=== PATIENT | female | born 1965 | race Caucasian/White ===

== ENCOUNTER 2017-07-20 17:13 | Observation (INO) ==
--- NOTE | 2017-07-20 17:18 | Emergency Department Note ---
Disposition Clinical Impression: Neurological abnormality Disposition: Home, Self-Care Condition: Fair Referrals: Zi Lucas MD [Primary Care Provider] - Forms: ED Satisfaction Letter Time of Disposition: 20:41 General Adult HPI - General Chief complaint: ED Neuro Symptoms/Deficit Stated complaint: Stroke like Symp Time Seen by Provider: 07/20/17 17:15 Source: patient Mode of arrival: wheelchair Limitations: altered mental status Nursing Notes Reviewed: Yes Vital Signs Reviewed: Yes - History of Present Illness HPI Narrative: 51-year-old female presents to the emergency department for convulsions and slurred speech. Daughter was with her and states that she got a call at approximately 1615 from her grandmother saying that she was not acting normal was having this arm shaking as well as slurred speech and confusion. This time is within the daughter went to get her and brought her to the emergency department on their way to the [facility] department she started having generalized convulsions and there does not to the hospital. He said this is all new to her. She only has history of SVT and hypertension in those the only medications that she takes. She has not had any changes in her medications. She haS no seizure history. Patient they said they believed to be last known normal at 1430 as this is when their other daughter jumped off their 7-month- old son to be watched. Recurrent daughter that is here states that she would not Dr. off she fell she was acting abnormal. That is what they believe is the last known normal. Patient's having no nausea or vomiting. No other complaints including headache, blurry vision, neck pain, abdominal pain, chest pain, shortness of breath, change in urination, change in bowel movements, pain or tingling on the arms or legs or any other generalized weakness. - Related Data Home Medications Medication Instructions Recorded Confirmed Albuterol Sulfate [Proair Hfa] 2 puff IH Q6H PRN 07/20/17 07/20/17 Cholecalciferol (D-3) [Vitamin D] 1,000 unit PO DAILY 07/20/17 07/20/17 Dicyclomine [Bentyl] 20 mg PO QID 07/20/17 07/20/17 Diltiazem CD (24hr) [Cardizem CD] 120 mg PO DAILY 07/20/17 07/20/17 FLUoxetine HCl [Prozac] 40 mg PO DAILY 07/20/17 07/20/17 Fluticasone/Salmeterol [Advair 1 puff IH BID 07/20/17 07/20/17 250-50 Diskus] Montelukast [Singulair] 10 mg PO DAILY 07/20/17 07/20/17 Valsartan/Hydrochlorothiazide 1 tab PO DAILY 07/20/17 07/20/17 [Diovan Hct 320-25 mg Tablet] Allergies Allergy/AdvReac Type Severity Reaction Status Date / Time No Known Allergies Allergy Verified 10/19/16 19:08 Review of Systems: 10 point review of systems done and negative unless otherwise stated in history of present illness. All systems ED: reviewed and negative except as stated. Review of Systems: As Per HPI Past Medical History - Past Medical History Attestation: Yes The following information was validated with the patient. Source: patient Medical history: Reports: asthma, hypertension, other - Social History Smoking Status: Never smoker Smokeless Tobacco Status: No Alcohol use: Reports: occasionally Drug use: Reports: none Physical Exam - General Limitations: no limitations General appearance: alert, in no apparent distress - Head Head exam: atraumatic, normocephalic, normal inspection - Eye Eye exam: Present: normal appearance, PERRL, EOMI - ENT ENT exam: normal exam, normal oropharynx, mucous membranes moist - Neck Neck exam: Present: normal inspection, full ROM, trachea midline - Chest Chest inspection: Present: normal inspection, symmetric chest wall rise - Respiratory Respiratory exam: Present: normal lung sounds bilaterally - Cardiovascular Cardiovascular exam: Present: regular rate, normal rhythm, normal heart sounds - Abdominal Exam Abdominal exam: Present: soft, Non-Tender, normal bowel sounds. Absent: tenderness, distention, guarding, rebound, rigidity - Extremities Exam Extremities exam: Present: normal inspection, full ROM, other (Rosenthal does have generalized shaking or convulsions while laying in bed in all 4 limbs.). Absent : tenderness, pedal edema - Back Exam Back exam: Present: normal inspection, full ROM. Absent: tenderness, CVA tenderness (R), CVA tenderness (L) - Neurological Exam Neurological exam: Present: alert, oriented X3, CN II-XII intact, motor sensory deficit - Expanded Neurological Exam Patient oriented to: Present: person, place, time Speech: Present: expressive aphasia Cranial nerves: EOM function (II, III, IV, ): Normal, facial sensation (V): Normal, facial palsy (VII): Normal, spinal accessory function (XI): Normal Cerebellar function: finger to nose: Normal, heel to [place]: Normal Motor strength - LUE: 5/5 Motor strength - RUE: 5/5 Motor strength - LLE: 5/5 Motor strength - RLE: 5/5 Upper motor neuron exam: marimar neglect: Absent bilaterally, pronator drift: Absent bilaterally Sensory exam upper extremity: light touch: Normal Sensory exam lower extremity: light touch: Normal Coma Scale Eye Opening: Spontaneous Coma Scale Motor Response: Obeys Commands Coma Scale Verbal Response: Oriented Coma Scale Total: 15 - Skin Skin exam: Present: warm, dry, intact, normal color Course Course Narrative: 51-year-old female presenting to the emergency department altered mental status as well as convulsions. After evaluating her there was worry for stroke suicide to initiate a stroke alert. CT head and neck were done immediately. We also got basic labs including coags, BMP, CBC, urinalysis, salicylates, acetaminophen, ethanol, UDS and urinalysis. Also got an EKG. [facility] is set to see the patient once returning from CT scan. - Reevaluation(s) Reevaluation #1: After coming back from CT scan patient was able to answer questions and move all limbs but she still did have generalized shaking that has gotten better than when she first arrived. She is able to follow all commands. [facility] did talk to her and was worried about a left lower limb ataxia as well as his generalized shaking. Due to the not know normal being unknown she was not a candidate for tPA according to [facility] and he recommended we do CTA of head and neck as well as giving 2 mg of Ativan for the shaking. These were ordered at this time. Negative head CT was called to Dr. Jean Baptiste during this time. This is explained to the patient's family and they understand this decision. Time: 18:06 Vital Signs Temperature 99.0 F 07/20/17 17:29 Pulse Rate 86 07/20/17 17:29 Respiratory Rate 18 07/20/17 17:29 Blood Pressure 158/103 07/20/17 17:29 O2 Sat by Pulse Oximetry 100 07/20/17 17:29 Temperature 99.0 F 07/20/17 18:11 Pulse Rate 87 12/13/17 20:24 Respiratory Rate 19 07/20/17 20:24 Blood Pressure 112/66 07/20/17 20:24 O2 Sat by Pulse Oximetry 95 07/20/17 20:24 Oxygen Delivery Oxygen Delivery Room Air Medical Decision Making - MDM Narrative Medical decision making narrative: 51-year-old female presented to the emergency department with slurred speech, shaking as well as aphasia. When we first evaluated her there was worry about strokes we called a stroke alert immediately. Patient was immediately taken down to CT and a CT was done and it did come back that was negative with no signs of hemorrhagic stroke. There is no other signs or abnormalities on that. [facility] did see the patient the neurologist to their exam and did see the limb ataxia as well as the shaking. Patient really was no longer a phasic but there was mild aphasia as she had a hard time expressing her words so it is more of an expressive aphasia. Patient did have a NIH of 1. The neurologist recommended not to have TPA as there was no known normal time for her. They say 1430 was when the sister talked to her and dropped her 7-month- old child off to be babysat as the last time they know normal. We did give her 2 mg of Ativan which did help with the convulsions and patient did fall asleep and was no longer having the convulsions. He gets CTA of her head and neck which had no acute abnormalities. Due to the odd neurological symptoms we felt admission was warranted. I spoke with the hospitalist Dr. Candelaria agreed to admit the patient to their service. Patient is now admitted to their service for further evaluation. Patient family are okay with this plan. Patient is in stable condition. Head CT 07/20/17 17:15 IMPRESSION: No acute intracranial abnormality. Findings were discussed with Dr. Jean Baptiste At 5:39 pm on 07/20/2017. D/ / Santana Simpson MD / Santana Simpson MD Interpreting Provider: Santana Simpson MD Head CTA 07/20/17 17:55 IMPRESSION: Mild stenosis of the intracranial internal carotid arteries, without flow-limiting stenosis involving intracranial vasculature. No focal occlusion or high-grade stenosis. Minimal atherosclerotic disease at the bilateral carotid bifurcation. No evidence of high-grade stenosis or occlusion. No evidence of vascular dissection. Focally dilated tubular structure appears similar to previous examination. 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 Recommend noncontrast examination of the chest nonemergently. This was present on 10/19/[address] D/ /20/2017 20:03:00 Bigg Lyon MD / kandis Interpreting Provider: Bigg Lyon MD Neck CTA 07/20/17 17:55 IMPRESSION: Mild stenosis of the intracranial internal carotid arteries, without flow-limiting stenosis involving intracranial vasculature. No focal occlusion or high-grade stenosis. Minimal atherosclerotic disease at the bilateral carotid bifurcation. No evidence of high-grade stenosis or occlusion. No evidence of vascular dissection. Focally dilated tubular structure appears similar to previous examination. 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 Recommend noncontrast examination of the chest nonemergently. This was present on 10/19/[address] D/ /20/2017 20:03:00 Bigg Lyon MD / kandis Interpreting Provider: Bigg Lyon MD - Medical Records Medical records reviewed: Yes I reviewed the patient's medical records. - Lab Data Lab results reviewed: Yes I reviewed the patient's lab results. Result diagrams: 07/20/17 17:18 07/20/17 17:18 Lab Results 07/20/17 07/20/17 07/20/17 Range/Units 17:18 17:18 17:18 WBC 8.1 (4.3-11.1) K/mcL RBC 3.74 L (3.82-4.97) M/mcL Hgb 12.2 (11.5-15.4) g/dL Hct 36.0 (35.3-44.9) % MCV 96.3 (83.0-100.0) fL MCH 32.6 (28.0-33.3) pg MCHC 33.9 (31.6-35.5) g/dL RDW 12.4 (11.5-14.5) % Plt Count 334 (140-400) K/mcL MPV 9.2 L (9.4-12.4) fL Immature Gran % 0.2 (0-4) % Seg Neutrophils % 44.0 % Lymphocytes % 44.6 % Monocytes % 8.1 % Eosinophils % 2.7 % Basophils % 0.4 % Neutrophils # 3.6 (1.6-8.9) K/mcL Lymphocytes # 3.6 (0.6-4.6) K/mcL Monocytes # 0.7 (0.0-1.3) K/mcL Eosinophils # 0.2 (0.0-0.6) K/mcL Basophils # 0.0 (0.0-0.2) K/mcL PT 10.9 (9.4-12.1) Seconds INR 1.0 APTT 28.1 (26.0-36.0) Seconds Sodium 141 (136-145) mEq/L Potassium 3.8 (3.5-4.5) mEq/L Chloride 106 (98-109) mEq/L Carbon Dioxide 25 (19-29) mEq/L BUN 17 (7-20) mg/dL Creatinine 0.93 (0.57-1.11) mg/dL Est GFR ( Amer) > 60 (> 60) Est GFR (Non-Af Amer) > 60 (> 60) BUN/Creatinine Ratio 18 (6-26) Glucose 124 H (70-99) mg/dL Calculated Osmolality 295 (280-300) Calcium 9.6 (8.6-10.8) mg/dL Creatine Kinase 73 (29-168) Units/L Troponin I (0-0.03) ng/mL Urine Color (Yellow) Urine Clarity (Clear) Urine pH (5.0-8.0) pH Units Ur Specific [place] (1.010-1.025) Urine Protein (Neg-Trace) mg/dL Urine Glucose (UA) (Normal) mg/dL Urine Ketones (Negative) mg/dL Urine Blood (Negative) Urine Nitrite (Negative) Urine Bilirubin (Negative) Urine Urobilinogen (Normal) mg/dL Ur Leukocyte Esterase (Negative) Urine Microscopic RBC (0-3) per hpf Urine Microscopic WBC (0-3) per hpf Ur Squamous Epith Cells (None-Few) per lpf Urine Bacteria (None-Few) per hpf Hyaline Casts (None-Few) per lpf Ur Culture Indicated? (NO) Urine Test (Negative) Salicylates < 5.0 L (15-30) mg/dL Urine Opiates Screen (Atwvcs=382) ng/mL Acetaminophen < 1.0 L (10-30) mcg/mL Ur Barbiturates Screen (Pgszxo=976) ng/mL Ur Phencyclidine Scrn (Cutoff=25) ng/mL Ur Amphetamines Screen (Kjhiqb=1271) ng/mL U Benzodiazepines Scrn (Jrnhkc=593) ng/mL Urine Cocaine Screen (Cutoff= 300) ng/mL U Marijuana (THC) Screen (Cutoff = 50) ng/mL Ethyl Alcohol < 10 (0-10) mg/dL 07/20/17 07/20/17 07/20/17 Range/Units 17:18 18:22 18:22 WBC (4.3-11.1) K/mcL RBC (3.82-4.97) M/mcL Hgb (11.5-15.4) g/dL Hct (35.3-44.9) % MCV (83.0-100.0) fL MCH (28.0-33.3) pg MCHC (31.6-35.5) g/dL RDW (11.5-14.5) % Plt Count (140-400) K/mcL MPV (9.4-12.4) fL Immature Gran % (0-4) % Seg Neutrophils % % Lymphocytes % % Monocytes % % Eosinophils % % Basophils % % Neutrophils # (1.6-8.9) K/mcL Lymphocytes # (0.6-4.6) K/mcL Monocytes # (0.0-1.3) K/mcL Eosinophils # (0.0-0.6) K/mcL Basophils # (0.0-0.2) K/mcL PT (9.4-12.1) Seconds INR APTT (26.0-36.0) Seconds Sodium (136-145) mEq/L Potassium (3.5-4.5) mEq/L Chloride (98-109) mEq/L Carbon Dioxide (19-29) mEq/L BUN (7-20) mg/dL Creatinine (0.57-1.11) mg/dL Est GFR ( Amer) (> 60) Est GFR (Non-Af Amer) (> 60) BUN/Creatinine Ratio (6-26) Glucose (70-99) mg/dL Calculated Osmolality (280-300) Calcium (8.6-10.8) mg/dL Creatine Kinase (29-168) Units/L Troponin I 0.02 (0-0.03) ng/mL Urine Color Yellow (Yellow) Urine Clarity Clear (Clear) Urine pH 7.0 (5.0-8.0) pH Units Ur Specific [place] 1.019 (1.010-1.025) Urine Protein Negative (Neg-Trace) mg/dL Urine Glucose (UA) Normal (Normal) mg/dL Urine Ketones Negative (Negative) mg/dL Urine Blood Negative (Negative) Urine Nitrite Negative (Negative) Urine Bilirubin Negative (Negative) Urine Urobilinogen Normal (Normal) mg/dL Ur Leukocyte Esterase Trace H (Negative) Urine Microscopic RBC 0-3 (0-3) per hpf Urine Microscopic WBC 0-3 (0-3) per hpf Ur Squamous Epith Cells Moderate H (None-Few) per lpf Urine Bacteria None Seen (None-Few) per hpf Hyaline Casts None Seen (None-Few) per lpf Ur Culture Indicated? YES A (NO) Urine Test Negative (Negative) Salicylates (15-30) mg/dL Urine Opiates Screen (Zeosdc=028) ng/mL Acetaminophen (10-30) mcg/mL Ur Barbiturates Screen (Cpveba=115) ng/mL Ur Phencyclidine Scrn (Cutoff=25) ng/mL Ur Amphetamines Screen (Lvjgbp=2531) ng/mL U Benzodiazepines Scrn (Adhbqq=663) ng/mL Urine Cocaine Screen (Cutoff= 300) ng/mL U Marijuana (THC) Screen (Cutoff = 50) ng/mL Ethyl Alcohol (0-10) mg/dL 12/13/17 Range/Units 18:22 WBC (4.3-11.1) K/mcL RBC (3.82-4.97) M/mcL Hgb (11.5-15.4) g/dL Hct (35.3-44.9) % MCV (83.0-100.0) fL MCH (28.0-33.3) pg MCHC (31.6-35.5) g/dL RDW (11.5-14.5) % Plt Count (140-400) K/mcL MPV (9.4-12.4) fL Immature Gran % (0-4) % Seg Neutrophils % % Lymphocytes % % Monocytes % % Eosinophils % % Basophils % % Neutrophils # (1.6-8.9) K/mcL Lymphocytes # (0.6-4.6) K/mcL Monocytes # (0.0-1.3) K/mcL Eosinophils # (0.0-0.6) K/mcL Basophils # (0.0-0.2) K/mcL PT (9.4-12.1) Seconds INR APTT (26.0-36.0) Seconds Sodium (136-145) mEq/L Potassium (3.5-4.5) mEq/L Chloride (98-109) mEq/L Carbon Dioxide (19-29) mEq/L BUN (7-20) mg/dL Creatinine (0.57-1.11) mg/dL Est GFR ( Amer) (> 60) Est GFR (Non-Af Amer) (> 60) BUN/Creatinine Ratio (6-26) Glucose (70-99) mg/dL Calculated Osmolality (280-300) Calcium (8.6-10.8) mg/dL Creatine Kinase (29-168) Units/L Troponin I (0-0.03) ng/mL Urine Color (Yellow) Urine Clarity (Clear) Urine pH (5.0-8.0) pH Units Ur Specific [place] (1.010-1.025) Urine Protein (Neg-Trace) mg/dL Urine Glucose (UA) (Normal) mg/dL Urine Ketones (Negative) mg/dL Urine Blood (Negative) Urine Nitrite (Negative) Urine Bilirubin (Negative) Urine Urobilinogen (Normal) mg/dL Ur Leukocyte Esterase (Negative) Urine Microscopic RBC (0-3) per hpf Urine Microscopic WBC (0-3) per hpf Ur Squamous Epith Cells (None-Few) per lpf Urine Bacteria (None-Few) per hpf Hyaline Casts (None-Few) per lpf Ur Culture Indicated? (NO) Urine Test (Negative) Salicylates (15-30) mg/dL Urine Opiates Screen Negative (Zwcjyr=511) ng/mL Acetaminophen (10-30) mcg/mL Ur Barbiturates Screen Negative (Bzocfk=765) ng/mL Ur Phencyclidine Scrn Negative (Cutoff=25) ng/mL Ur Amphetamines Screen Negative (Htrrbn=8479) ng/mL U Benzodiazepines Scrn Negative (Jfoqpl=908) ng/mL Urine Cocaine Screen Negative (Cutoff= 300) ng/mL U Marijuana (THC) Screen Positive H (Cutoff = 50) ng/mL Ethyl Alcohol (0-10) mg/dL - Radiology Data Radiology results reviewed: Yes I reviewed the patient's radiology results. - EKG Data EKG #1 EKG attestation: Yes I reviewed and interpreted this EKG. EKG results narrative: EKG done at 1738 reviewed myself and the attending shows normal sinus rhythm at a rate of 84, HI interval 162, QRS 77, QTC 419 with a normal axis. No acute ST changes, no acute T-wave abnormalities, no signs of hypertrophy or heart strain , no signs of any heart blocks, no signs of WPW/Brugada syndrome. There is no old EKG to compare this time. Attestation Statement - Attestation Attestation: I examined this patient and my medical decision-making was reviewed with the Resident Physician. I agree with the documented findings, disposition and treatment plan as described except to the extent set forth below. Fxyq-sw-[id number] time provided Patient presents to the treatment area by wheelchair. She was brought to the hospital by her daughter by private vehicle. She had generalized convulsive movements upon arrival she was alert and a phasic. She seems very anxious. We initially could not ascertain whether or not this was primarily a facial and a primary cerebrovascular event so we did activate a stroke alert 17:39: Head CT negative per closed radiology interpretation. Patient has returned from CT scan and moves all 4 extremities with symmetric strength. She is intermittently aphasic. 17:56: Dr. Vidales is completed his telemedicine neurology evaluation. He recommends against TPA due to uncertain onset of symptoms. He recommends IV Ativan and obtaining a CTA head and neck NIH Stroke Scale - Level of Consciousness LOC: Alert - LOC Questions LOC Questions: Answers both correctly - LOC Commands LOC Commands: Performs both correctly - Best Gaze Best Gaze: Normal - Visual Visual: No visual loss - Facial Palsy Facial Palsy: Normal - Motor Arms Motor Arm-Left: No drift for 10 seconds Motor Arm-Right: No drift for 10 seconds - Motor Legs Motor Leg-Left: No drift for 5 seconds Motor Leg-Right: No drift for 5 seconds - Limb Ataxia Limb Ataxia: Normal, No Ataxia - Sensory Sensory: Normal - Best Language Best Language: Mild to moderate aphasia. Examiner can identify picture from response - Dysarthria Dysarthria: Normal - Extinction and Inattention Extinction and Inattention: Normal - NIHSS Total Score NIHSS Total Score: 1
[2017-07-20 17:28] LABS: Basophils % 0.4 %; Eosinophils # 0.2 K/mcL (0.0-0.6); Eosinophils % 2.7 %; Hemoglobin 12.2 g/dL (11.5-15.4); Immature Granulocytes % 0.2 % (0-4); Lymphocytes # 3.6 K/mcL (0.6-4.6); Lymphocytes % 44.6 %; Mean Corpuscular HGB Conc 33.9 g/dL (31.6-35.5); Mean Corpuscular Hemoglobin 32.6 pg (28.0-33.3); Mean Corpuscular Volume 96.3 fL (83.0-100.0); Mean Platelet Volume 9.2 fL (9.4-12.4); Monocytes # 0.7 K/mcL (0.0-1.3); Monocytes % 8.1 %; Neutrophils # 3.6 K/mcL (1.6-8.9); Platelet Count 334 K/mcL (140-400); Red Blood Count 3.74 M/mcL (3.82-4.97); Red Cell Distribution Width 12.4 % (11.5-14.5)
[2017-07-20 17:35] LABS: Prothrombin Time 10.9 Seconds (9.4-12.1)
[2017-07-20 17:38] LABS: Activated Partial Thrombo Time 28.1 Seconds (26.0-36.0)
[2017-07-20 17:42] LABS: Acetaminophen < 1.0 mcg/mL (10-30); BUN/Creatinine Ratio 18 (6-26); Blood Urea Nitrogen 17 mg/dL (7-20); Calcium 9.6 mg/dL (8.6-10.8); Carbon Dioxide 25 mEq/L (19-29); Chloride 106 mEq/L (98-109); Creatine Kinase 73 Units/L (29-168); Ethanol < 10 mg/dL (0-10); Glucose 124 mg/dL (70-99); Osmolality,Calculated 295 (280-300); Potassium 3.8 mEq/L (3.5-4.5); Salicylate < 5.0 mg/dL (15-30); Sodium 141 mEq/L (136-145); eGFR For African Americans > 60 (> 60); eGFR For Non-African Americans > 60 (> 60)
[2017-07-20] MEDS ORDERED: *HR* LORazepam 2 MG/ML VIAL IVP ONE (17:55)
[2017-07-20 18:29] LABS: Bilirubin,Urine Negative (Negative); Blood,Urine Negative (Negative); Clarity,Urine Clear (Clear); Color,Urine Yellow (Yellow); Glucose,Urine (UA) Normal (Normal); Ketones,Urine Negative (Negative); Leukocyte Esterase,Urine Trace (Negative); Nitrite,Urine Negative (Negative); Protein,Urine Negative (Neg-Trace); Specific Gravity,Urine 1.019 (1.010-1.025); Urobilinogen,Urine Normal (Normal)
[2017-07-20 18:30] LABS: Bacteria,Urine None Seen per hpf (None-Few); Hyaline Casts,Urine None Seen per lpf (None-Few); RBC,Urine 0-3 per hpf (0-3); Squamous Epithelial Cell,Urine Moderate per lpf (None-Few); WBC,Urine 0-3 per hpf (0-3)
[2017-07-20 18:35] LABS: Amphetamine Screen,Urine Negative ng/mL (Cutoff=1000); Barbiturate Screen,Urine Negative ng/mL (Cutoff=200); Benzodiazepines Screen,Urine Negative ng/mL (Cutoff=200); Cannabinoid Screen,Urine Positive ng/mL (Cutoff = 50); Cocaine Screen,Urine Negative ng/mL (Cutoff= 300); Opiate Screen,Urine Negative ng/mL (Cutoff=300); Phencyclidine Screen,Urine Negative ng/mL (Cutoff=25)
--- NOTE | 2017-07-20 21:25 | Internal Med History&Physical ---
<Natalee Ramey - Last Filed: 07/20/17 23:12> Date of Encounter: 07/20/17 Time of Encounter: 21:22 Assessment and Plan (1) Dizziness Current visit: Yes Status: Acute Patient reported dizziness that she described as the "room moving around" that began at 3pm. Worse when standing up from seated position. She also had numbness and tingling in right arm. Patient's family reported she was not acting right. ED called stroke alert and the patient was not TPA candidate. Upon my exam the patient was alert and oriented. No focal deficits. Strength and sensation intact. She only complained of continued dizziness and nausea. She recently had a sinus cold that she just got over. CTA head and neck showed mild stenosis of the intracranial internal carotid arteries that was not obstructing blood flow. Consider Vertigo secondary to BPPV, acute labrynthitis, posterior occipital CVA Brain MRI meclizine orthostatics PT/OT to evaluate lipid panel fall precautions (2) Hypertension Current visit: Yes Status: Acute BP stable. History of SVT continue home medications of cardizem and valsartan/ HCTZ Qualifiers: Hypertension type: essential hypertension Qualified Code(s): I10 - Essential (primary) hypertension (3) Asthma Current visit: Yes Status: Acute History of asthma taking advair and proair stable and controlled continue home medications Qualifiers: Qualified Code(s): J45.909 - Unspecified asthma, uncomplicated (4) Multiple allergies Current visit: Yes Status: Acute history of allergies. continue home medications. (5) DVT prophylaxis Current visit: Yes Status: Acute ambulate TID Internal Medicine - H&P: HPI Chief complaint: dizziness Admitted From: Emergency Dept Plans for Post Hospital Care: Home History of present illness: Ms. Barrera is a 51 year old female with a past medical history of HTN, asthma, depression, SVT who presented to [facility] ED complaining of dizziness that began around 3pm. The patient is alongside her daughter who helps to confirm history. She stated that she was sitting when the room starting "moving around". She also had right arm numbness and tingling. Standing up made it worse. Her daughter was called by the grandma who was with the patient and told her that she was not acting right and very dizzy. Daughter then picked up her mother and came to ED. Daughter stated the patient began stiffening up in wheel chair as she was bringing her in and that she had tremor like movement. The patient stated that she had associated nausea. She denies syncope, headache, chest pain, palpitations, shortness of breathe, abdominal pain, dysuria, incontinence. She reported that she has had sinus congestion she just got over. She denied recent travel, sick contacts, falls, seizure, stroke. Upon my exam the patient no longer had right arm numbness or tingling or weakness. She only had dizziness. She had just been given ativan so she was more tired but still able to answer questions. Her daughter was present to help. The patient had been to the ED about a month ago apparently she passed out on treadmill. She stated at that time she had the same dizziness with the room "moving around" prior to falling. In the ED a stroke alert was called, the patient did not require TPA. UDS positive for marijuana. afebrile, vitals stable, WBC WNL. CTA head and neck showed mild stenosis of the intracranial internal carotid arteries that was not obstructing blood flow. Past Med Surg Social Fam HX - Past Medical History Medical history: asthma, hypertension, SVT, other Psychiatric history: depression - Past Surgical History Surgical History: breast surgery (breast reduction) - Social History Smoking Status: Never smoker Smokeless Tobacco Status: No Alcohol use: occasionally Drug use: none Current living situation: Home Activity Level: Independent ambulation - Family History Mother Hx Family Cancer: Yes (breast cancer) Father Hx Family Cancer: Yes (lung and liver cancer) Internal Medicine - H&P: Meds Albuterol Sulfate [Proair Hfa] 2 puff IH Q6H PRN 07/20/17 [History] Cholecalciferol (D-3) [Vitamin D] 1,000 unit PO DAILY 07/20/17 [History] Dicyclomine [Bentyl] 20 mg PO QID 07/20/17 [History] Diltiazem CD (24hr) [Cardizem CD] 120 mg PO DAILY 07/20/17 [History] FLUoxetine HCl [Prozac] 40 mg PO DAILY 07/20/17 [History] Fluticasone/Salmeterol [Advair 250-50 Diskus] 1 puff IH BID 07/20/17 [History] Montelukast [Singulair] 10 mg PO DAILY 07/20/17 [History] Valsartan/Hydrochlorothiazide [Diovan Hct 320-25 mg Tablet] 1 tab PO DAILY 07/20 [History] 3 Allergy/AdvReac Type Severity Reaction Status Date / Time No Known Allergies Allergy Verified 10/19/16 19:08 All Systems PM: A 10-system review of systems was performed and is negative for pertinent findings except as documented above in the HPI. - Constitutional Constitutional: no chills, no fever(s), no falls - EENT Eyes: change in vision ("room moving around"), no floaters, no loss of vision, no tunnel vision Ears: no decreased hearing Nose, mouth and throat: no facial pain, no sinus pressure, no sore throat - Cardiovascular Cardiovascular ROS IM: lightheadedness, no chest pain, no diaphoresis, no palpitations, no syncope - Respiratory Respiratory: no cough, no dyspnea, no wheezing - Gastrointestinal Gastrointestinal: nausea, no abdominal pain, no cramping, no hematemesis, no melena, no vomiting - Genitourinary Genitourinary: no dysuria, no hematuria, no urinary frequency, no urinary incontinence, no urinary urgency - Musculoskeletal Musculoskeletal ROS IM: no muscle weakness - Integumentary Integumentary IM: no rash - Neurological Neurological ROS: abnormal speech, dizziness, numbness (right amr), tingling ( right arm), tremor(s), vertigo, weakness, no abnormal hearing, no convulsions, no headache(s), no loss of vision - Constitutional Vitals: Temp Pulse Resp BP Pulse Ox 99.0 F 87 19 112/66 95 07/20/17 18:11 07/20/17 20:24 07/20/17 20:24 07/20/17 20:24 07/20/17 20:24 General appearance: Present: A&O X 3, pleasant, no acute distress - Head Head exam: Present: atraumatic, normocephalic - Eye Eye exam: Present: conjunctival injection, normal appearance. Absent: nystagmus , scleral icterus - ENT ENT exam: Present: mucous membranes moist - Neck Neck exam general surgery: Present: normal inspection, supple. Absent: lymphadenopathy, tenderness - Respiratory Respiratory exam: Present: CTAB. Absent: rales, rhonchi, wheezes - Cardiovascular Cardiovascular exam: Present: RRR, +S1, +S2. Absent: clicks - GI/Abdominal GI/Abdominal exam: Present: normal bowel sounds, soft. Absent: firm, guarding, rebound, tenderness - Extremities Exam Extremities exam: Present: normal inspection. Absent: calf tenderness - Back Exam Back exam: Present: normal inspection. Absent: rash noted, tenderness - Neurological Exam Neurological exam: Present: motor sensory deficit, oriented X3, strengths equal and symetr throughout. Absent: facial droop, speech deficit - Skin Skin exam: Present: dry, intact Internal Med - H&P Results - Labs CBC & Chem 7: 07/20/17 17:18 07/20/17 17:18 <Casey Candelaira - Last Filed: 07/21/17 01:19> Date of Encounter: 07/21/17 Internal Medicine - H&P: HPI History of present illness: Ms. Barrera is a 51 year old female All Systems PM: A 10-system review of systems was performed and is negative for pertinent findings except as documented above in the HPI. - Constitutional Vitals: Temp Pulse Resp BP Pulse Ox 98.0 F 77 16 107/68 93 07/20/17 21:57 07/20/17 21:57 07/20/17 21:57 07/20/17 21:57 07/20/17 21:57 Internal Med - H&P Results - Labs CBC & Chem 7: 07/20/17 17:18 07/20/17 17:18 - Attending Attestation I examined this patient and my medical decision-making was reviewed with the Resident Physician. I agree with the documented findings, disposition and treatment plan as described except to the extent set forth below. Presented with vertigo symptoms - reported everything spinning. Noted to have tremors of extremities in the ED and some LLE feature ? leading to stroke alert that was called in the ED. Eval with CT head w/o acute finding. CTA as rec by [facility] neurology For me, she has significant vertiginous symptoms General - Somnolent Psych - Appropriate affect/speech. No agitation Eyes - No scleral icterus Neuro - No focal peripheral deficits - UE and LE 4/5. CN exam grossly intact but with decreased ability to open eyelids long enough for exam occular movement Heart - Sinus. RRR. S1 and S2 present. No added HS/murmurs appreciated. No elevated JVD appreciated. Lung - Adequate air entry b/l, No crackles/wheezes appreciated GI - Soft, non-tender. No hepatosplenomegaly/ascites. BS+ - No CVA/suprapubic tenderness or palpable bladder distension Skin - Intact. No rash/petechiae/ecchymosis. Warm extremities MSK - Joints with normal ROM. No joint swellings CT/CT stroke alert head wo con IMPRESSION: No acute intracranial abnormality. CT/CT angio head IMPRESSION: 1. Mild stenosis of intracranial internal carotid arteries, without flow-limiting stenosis involving intracranial vasculature. No focal occlusion or high-grade stenosis. 2. Minimal atherosclerotic disease at the bilateral carotid bifurcation. No evidence of high-grade stenosis or occlusion. No evidence of vascular dissection. 3. Focally dilated tubular structure within right upper lobe appears similar to previous examination. 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 Recommend noncontrast examination of the chest nonemergently. This was present on 10/19/[address] (but only post-contrast images were obtained at that time). CT/CT angio neck IMPRESSION: 1. Mild stenosis of intracranial internal carotid arteries, without flow-limiting stenosis involving intracranial vasculature. No focal occlusion or high-grade stenosis. 2. Minimal atherosclerotic disease at the bilateral carotid bifurcation. No evidence of high-grade stenosis or occlusion. No evidence of vascular dissection. 3. Focally dilated tubular structure within right upper lobe appears similar to previous examination. 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 Recommend noncontrast examination of the chest nonemergently. This was present on 10/19/[address] (but only post-contrast images were obtained at that time). A/P Prominent vertigo symptoms Mental status may be poor as she had benzo in the ED. To follow in the a.m - check MRI brain w/o contrast to r/o posterior CVA - CT Chest w/o contrast to clarify incidental MRA findings as recommended by report - PT/OT
[2017-07-20] MEDS ORDERED: Naloxone 0.4 MG/ML INJ IVP PRN (21:27)
[2017-07-20] MEDS ORDERED: Ondansetron ODT 4 MG TAB.RAPDIS SL PRN (21:48)
[2017-07-21 04:15] LABS: Alanine Aminotransferase 11 Units/L (0-55); Albumin 3.1 g/dL (3.5-5.0); Albumin/Globulin Ratio 0.8 (1.1-2.2); Alkaline Phosphatase 65 Units/L (38-126); Aspartate Amino Transferase 14 Units/L (5-34); BUN/Creatinine Ratio 15 (6-26); Bilirubin,Total 0.4 mg/dL (0.2-1.2); Blood Urea Nitrogen 11 mg/dL (7-20); Calcium 9.1 mg/dL (8.6-10.8); Carbon Dioxide 27 mEq/L (19-29); Chloride 104 mEq/L (98-109); Globulin 3.8 g/dL (2.4-3.5); Glucose 97 mg/dL (70-99); Lactate Dehydrogenase 139 Units/L (159-327); Osmolality,Calculated 285 (280-300); Potassium 3.5 mEq/L (3.5-4.5); Sodium 138 mEq/L (136-145); Total Protein 6.9 g/dL (6.0-8.3); eGFR For African Americans > 60 (> 60); eGFR For Non-African Americans > 60 (> 60)
[2017-07-21] MEDS: Budesonide/Formoterol 80/4.5 MDI IH SCH ×2 (07:50→19:56)
[2017-07-21] MEDS: FLUoxetine 20 MG CAPSULE PO SCH (08:43)
[2017-07-21] MEDS: Diltiazem CD (24hr) 120 MG CAPSULE PO SCH (08:43)
[2017-07-21] MEDS: hydroCHLOROthiazide 25 MG TABLET PO SCH (08:43)
[2017-07-21] MEDS: Valsartan 160 MG TABLET PO SCH (08:43)
[2017-07-21] MEDS: Levofloxacin 750 MG/150 ML 750 MG/150 ML BAG IVPB SCH ×2 (11:46→11:52)
--- NOTE | 2017-07-21 13:00 | Neurology - Consult Note ---
Date of Encounter: 07/21/17 Time of Encounter: 07:50 Assessment and Plan (1) Dizziness Current Visit: Yes Status: Acute This 57-year-old female was admitted with Dizziness lightheadedness predominantly positional vertigo now symptoms has resolved she did not have any focal motor lateralizing sign of a stroke on her examination nor did she was having some nonspecific numbness and tingling that has been resolved. CT angiogram did not show any critical stenosis in the posterior circulation no evidence of posterior circulation stroke on exam or imaging. She is scheduled for an MRI of the brain followed with the results. Suggest to check for underlying metabolic and infectious etiology Continue on an aspirin may use meclizine on when necessary basis Symptoms also not concerning off seizure no new medication recommended from neurology standpoint other treatment is as per primary team may benefit from physical therapy evaluation particularly for gait and balance training. (2) Weakness generalized Current Visit: Yes Status: Acute weakness no focal motor deficit on examination Her metabolic abnormalities make sure patient is well hydrated she did have a urine tox positive symptoms could be related to ut History of Present Illness HPI: Ms. Barrera is a 51 year old female with a past medical history of HTN, asthma, depression, admitted via ED complaining of dizziness that began around 3pm. according to the patient she was sitting when the room starting "moving around" . She also had right arm numbness and tingling when she tried to stand up symptoms got worse. because of these symptoms she came to the ED. according to the records when her Daughter was bringing her to ER patient began stiffening up in wheel chair she may had some tremor like movement. she also has some associated nausea. She denies syncope, chest pain, palpitations, shortness of breathe, abdominal pain, dysuria, incontinence. she was also complaining of right arm numbness or tingling and weakness that resolved in ER< she was given ativan The patient had been to the ED about a month ago apparently she passed out on treadmill. She stated at that time she had the same dizziness with the room "moving around" prior to falling. In the ED a stroke alert was called, as her symptoms were not typical of CVA and noted to be improved with Ativan, she was not a TPA candidate. drug screen is positive for marijuana. in ED CT of head was negative, CTA head and neck did not show any critical stenosis Past Med Surg Social Fam HX - Past Medical History Medical history: asthma, hypertension, SVT, other Psychiatric history: depression - Past Surgical History Surgical History: breast surgery (breast reduction) - Social History Smoking Status: Never smoker Smokeless Tobacco Status: No Alcohol use: occasionally Drug use: none - Family History Mother Hx Family Cancer: Yes (breast cancer) Father Living Status: Hx Family Cancer: Yes (lung and liver cancer) Medications and Allergies Albuterol Sulfate [Proair Hfa] 2 puff IH Q6H PRN 07/20/17 [History] Cholecalciferol (D-3) [Vitamin D] 1,000 unit PO DAILY 07/20/17 [History] Dicyclomine [Bentyl] 20 mg PO QID 07/20/17 [History] Diltiazem CD (24hr) [Cardizem CD] 120 mg PO DAILY 07/20/17 [History] FLUoxetine HCl [Prozac] 40 mg PO DAILY 07/20/17 [History] Fluticasone/Salmeterol [Advair 250-50 Diskus] 1 puff IH BID 07/20/17 [History] Montelukast [Singulair] 10 mg PO DAILY 07/20/17 [History] Valsartan/Hydrochlorothiazide [Diovan Hct 320-25 mg Tablet] 1 tab PO DAILY 07/20 [History] 3 Allergy/AdvReac Type Severity Reaction Status Date / Time No Known Allergies Allergy Verified 10/19/16 19:08 All Systems: A 10-system review of systems was performed and is negative for pertinent findings except as documented above in the HPI. Physical Examination - Vital Signs Vital Signs: Initial Vital Signs Temp Pulse Resp BP Pulse Ox 99.0 F 86 18 158/103 100 07/20/17 17:29 07/20/17 17:29 07/20/17 17:29 07/20/17 17:29 07/20/17 17:29 - Constitutional General appearance: comfortable - Neurologic Sensorimotor examination: intact Detailed motor examination: grossly full strength in all extremities Motor examination - right side: 4/5: deltoids, biceps, triceps, wrist flexion, wrist extension, hand silvering supervisor, hip flexors, tibialis Anterior, quadriceps, toe extension (EHL), plantarflexion Motor examination - left side: 4/5: deltoids, biceps, triceps, wrist flexion, wrist extension, hip flexors, hand silvering supervisor, quadriceps, tibialis Anterior, toe extension (EHL), plantarflexion Detailed sensory examination: intact Reflexes: Biceps: 1+, Triceps: 1+, Brachioradialis: 1+, Patella: 1+, Achilles: 1 + Mental Status Examination: awake, alert, oriented to person, oriented to place, oriented to time, follows commands appropriately, answers questions appropriately, no agnosia, no aphasia, no aproxia Cranial nerve examination: PERRL, EOMI, visual pal intact, corneal reflexes brisk symmetrically, sensory to face intact, mastication intact, no facial asymmetry is present, no dysarthria, hearing is intact symmetrically, soft palate elevates bilaterally upon phonation, gag reflex intact, flexes SCM and trapezius muscles symmetrically with full power, tongue protrudes midline, no atrophy or facial fasiculations present Cerebellar examination: no dysmetria Results - Laboratory Findings CBC and BMP: 07/20/17 17:18 07/21/17 03:47 Abnormal lab findings: Abnormal lab results RBC 3.74 M/mcL (3.82-4.97) L 07/20/17 17:18 MPV 9.2 fL (9.4-12.4) L 07/20/17 17:18 POC Glucose 102 (58-89) H 07/20/17 17:16 Lactate Dehydrogenase 139 Units/L (159-327) L 07/21/17 03:47 Albumin 3.1 g/dL (3.5-5.0) L 07/21/17 03:47 Globulin 3.8 g/dL (2.4-3.5) H 07/21/17 03:47 Albumin/Globulin Ratio 0.8 (1.1-2.2) L 07/21/17 03:47 Cholesterol 221 mg/dL (< 200) H 07/21/17 03:47 LDL Cholesterol, Calc 161 mg/dL (0-99) H 07/21/17 03:47 Cholesterol/HDL Ratio 5.0 (0-4.9) H 07/21/17 03:47 Ur Leukocyte Esterase Trace (Negative) H 07/20/17 18:22 Ur Squamous Epith Cells Moderate per lpf (None-Few) H 07/20/17 18:22 Ur Culture Indicated? YES (NO) A 07/20/17 18:22 Salicylates < 5.0 mg/dL (15-30) L 07/20/17 17:18 Acetaminophen < 1.0 mcg/mL (10-30) L 07/20/17 17:18 U Marijuana (THC) Screen Positive ng/mL (Cutoff = 50) H 07/20/17 18:22 - Diagnostic Findings Additional findings: CTA of head and NEck showed: Mild stenosis of intracranial internal carotid arteries, without flow-limiting stenosis involving intracranial vasculature. No focal occlusion or high-grade stenosis. Minimal atherosclerotic disease at the bilateral carotid bifurcation. No evidence of high-grade stenosis or occlusion. No evidence of vascular dissection. Focally dilated tubular structure within right upper lobe appears similar to previous examination. 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 Recommend noncontrast examination of the chest nonemergently. Consult Discharge Plan - Plan Referrals: Zi Lucas MD [Primary Care Provider] -
[2017-07-21 13:40] LABS: Adenovirus Not Detected (Not Detect); Bordetella Pertussis Not Detected (Not Detect); Chlamydophila pneumoniae Not Detected (Not Detect); Coronavirus 229E Not Detected (Not Detect); Coronavirus HKU1 Not Detected (Not Detect); Coronavirus NL63 Not Detected (Not Detect); Coronavirus OC43 Not Detected (Not Detect); Human Metapneumovirus Not Detected (Not Detect); Human Rhinovirus/Enterovirus Not Detected (Not Detect); Influenza A Subtype 2009 H1 Not Detected (Not Detect); Influenza A Untypeable Not Detected (Not Detect); Influenza B Not Detected (Not Detect); Mycoplasma pneumoniae Not Detected (Not Detect); Parainfluenza Virus 1 Not Detected (Not Detect); Parainfluenza Virus 2 Not Detected (Not Detect); Parainfluenza Virus 3 Not Detected (Not Detect); Parainfluenza Virus 4 Not Detected (Not Detect); Respiratory Syncytial Virus Not Detected (Not Detect)
--- NOTE | 2017-07-21 14:21 | EEG/EMG/Oth Biometrics Report ---
EEG Procedure Report Date of procedure: 07/21/17 EEG Procedure: Routine EEG Procedure Note: Routine 21-channel digital EEG was obtained to rule out any seizure activity or focal abnormalities. FINDINGS: Background rhythm during awake stage shows poorly organized, low voltage fast beta activity in the anterior regions. No [id number] discharges or any lateralizing abnormalities are seen. Almost constant EMG artifacts and tremor artifacts are noted making the study suboptimal. Photic stimulation did not produce any abnormalities. Stage II sleep was not observed. The patient was noted by the pipe organ technician to be restless and moving all the time during the study and having tremors of the mouth and arms. Stage II sleep was not achieved. IMPRESSION: Suboptimal study, no clear paroxysmal activities or epileptiform discharges were seen. Prominent beta activity in the anterior regions could be secondary to medication effect, in particularly to Benzos or Barbiturates clinical correlation is suggested
[2017-07-21 14:59] LABS: Folate 16.3 ng/mL (7.0-31.4)
--- NOTE | 2017-07-21 16:30 | Electrocardiograph Report ---
[place] [id number] Test Date: 2017-07-20 Pat Name: Deann Barrera Department: 103 Room: 3B32 Gender: F Instructor Adjunct Surgical Technician: EKP : [id number] Requested By: Bianka Franco Order Number: [id number] Reading MD: Joselyn Roman Measurements Intervals [place] Rate: 84 P: 43 AR: 162 QRS: 29 QRSD: 77 T: 29 QT: 377 QTc: 419 Interpretive Statements SINUS RHYTHM SEPTAL MYOCARDIAL INFARCTION [40+ ms Q WAVE IN V1/V2], PROBABLY OLD Electronically Signed On 07-21-2017 16:28:48 EST by Joselyn Roman
--- NOTE | 2017-07-21 17:22 | Event Note ---
Date of Encounter: 07/21/17 Time of Encounter: 09:30 Seen and examined at bedside. Patient is new to me. Information obtained from chart review and patient report. Patient is awake, drowsy but oriented. Appears acutely ill. Vertigo: Episode of dizziness and sensation of room spinning that started at 3 PM day prior to presentation. ED notes report patient had convulsions and slurred speech as well. Etiology unknown at this time. She is awake and drowsy but does appear somewhat altered. She received IV Ativan and ED which could be contributing to his illness. Head CT and brain MRI nonacute. EEG with no obvious paroxysmal or epileptiform activity. Check echo, orthostatics. If symptoms persist consult ENT. Acute bronchitis: Suspected with productive cough and fever. Patient reports subjective of 104 3 days prior to admission. Says she has been sick for the last 2 weeks but has not sought medical attention. Clinically appears somewhat acute and uncomfortable. Hemodynamically stable. No tachycardia, no hypotension. With productive cough and rhonchorous lung sounds. CXR negative, chest CT stable 9 x 4 mm partially calcified nodule. Clinically appears to be acute bronchitis/URI. Start IV Levaquin. Respiratory PCR, urinary antigens pending.
[2017-07-22 06:13] LABS: Hematocrit 35.1 % (35.3-44.9); Hemoglobin 11.7 g/dL (11.5-15.4); Mean Corpuscular HGB Conc 33.3 g/dL (31.6-35.5); Mean Corpuscular Hemoglobin 32.4 pg (28.0-33.3); Mean Corpuscular Volume 97.2 fL (83.0-100.0); Mean Platelet Volume 9.5 fL (9.4-12.4); Platelet Count 298 K/mcL (140-400); Red Blood Count 3.61 M/mcL (3.82-4.97); Red Cell Distribution Width 12.4 % (11.5-14.5)
[2017-07-22 06:24] LABS: BUN/Creatinine Ratio 19 (6-26); Blood Urea Nitrogen 15 mg/dL (7-20); Carbon Dioxide 26 mEq/L (19-29); Chloride 106 mEq/L (98-109); Glucose 97 mg/dL (70-99); Osmolality,Calculated 291 (280-300); Potassium 4.1 mEq/L (3.5-4.5); Sodium 140 mEq/L (136-145); eGFR For African Americans > 60 (> 60); eGFR For Non-African Americans > 60 (> 60)
[2017-07-22 06:43] VITALS: BP 112/64
[2017-07-22] MEDS: Budesonide/Formoterol 80/4.5 MDI IH SCH (07:50)
--- NOTE | 2017-07-22 09:06 | Discharge Summary ---
Date of Encounter: 07/22/17 Time of Encounter: 09:01 - Discharge Diagnosis (1) Encephalopathy acute Priority: Primary Status: Resolved Comments: Presented with confusion, slurred speech and possible convulsions although unable to confirm convulsions with patient. Head CT nonacute. Head/neck CTA unremarkable. Brain MRI chronic ischemic changes, otherwise nonacute. EEG negative for seizure activity. Mentation improved to baseline without intervention. Suspect secondary to ingestion of marijuana brownie. Patient reported eating a brownie that contained marijuana at her daughter's house unknowingly. Evaluated by neurology who did not suspect underlying neurological process. Cont ASA per neurology recommendations. If the concern for seizures recurs then can follow up with neurology outpatient for 48 hours ambulatory EEG. (2) Acute bacterial bronchitis Priority: Primary Status: Acute Comments: Expected with 2 weeks of productive cough, subjective fevers at home (Tmax 104 per patient) and rhonchorous lung sounds. Chest CT nonacute other clinically appeared to be acute bacterial bronchitis. Urinary antigens, respiratory PCR negative. Received time dose IV Levaquin inpatient. Z-Juan Pablo at discharge. Recommend follow-up with PCP within 1-2 weeks. (3) Hypertension Priority: Primary Status: Acute Comments: per hx. BP soft/borderline. Home Diovan decreased. Follow-up with PCP within one week for BP recheck Qualifiers: Hypertension type: essential hypertension Qualified Code(s): I10 - Essential (primary) hypertension (4) SVT (supraventricular tachycardia) Priority: Primary Status: Chronic Comments: per hx. NSR on tele. Cont home CCB (5) Lung nodule Priority: Primary Status: Chronic Comments: Stable 9 x 4 mm partially calcified nodule in the right upper lobe which could represent a granuloma. If this has been stable for more than 2 years, then no further follow-up is needed. Otherwise CT at 6-12 months, then CT at 18-24 months. Defer follow-up to PCP. - Discharge Medications Prescriptions: Aspirin 81 mg PO DAILY #30 tab.chew Azithromycin [Azithromycin 6-Tab Pack] 250 mg PO PER PKG DI #6 tab Valsartan/Hydrochlorothiazide [Diovan Hct 160-12.5 mg Tab] 1 each PO DAILY #30 tablet Home Medications: Albuterol Sulfate [Proair Hfa] 2 puff IH Q6H PRN 07/20/17 [History] Cholecalciferol (D-3) [Vitamin D] 1,000 unit PO DAILY 07/20/17 [History] Dicyclomine [Bentyl] 20 mg PO QID 07/20/17 [History] Diltiazem CD (24hr) [Cardizem CD] 120 mg PO DAILY 07/20/17 [History] FLUoxetine HCl [Prozac] 40 mg PO DAILY 07/20/17 [History] Fluticasone/Salmeterol [Advair 250-50 Diskus] 1 puff IH BID 07/20/17 [History] Montelukast [Singulair] 10 mg PO DAILY 07/20/17 [History] Aspirin 81 mg PO DAILY #30 tab.chew 07/22/17 [Rx] Azithromycin [Azithromycin 6-Tab Pack] 250 mg PO PER PKG DI #6 tab 07/22/17 [Rx] Valsartan/Hydrochlorothiazide [Diovan Hct 160-12.5 mg Tab] 1 each PO DAILY #30 tablet 07/22/17 [Rx] Allergies/Adverse Reactions: 3 Allergy/AdvReac Type Severity Reaction Status Date / Time No Known Allergies Allergy Verified 10/19/16 19:08 Procedures/tests Complete & Pending: Procedures Performed prior 72 hours Category Date Time Status CT chest w/o contrast [CT chest wo con] [CT] Routine Cat Scan 07/21/17 09:30 Completed MR head/brain wo con [MR] Routine MRI 07/21/17 13:10 Completed ECG 12 lead ECG [ECG] Routine Y 07/20/17 17:38 Completed Date of admission: 07/20/17 20:54 Primary care physician: Zi Lucas MD Consults: 07/20/17 21:44 Consult to Occupational Therapy [CONS] Routine Comment: Evaluate, develop and implement POC Reason for Consult: weakness and dizziness Consult to Physical Therapy [CONS] Routine Comment: Evaluate, develop and implement POC Reason for Consult: weakness and dizziness 07/21/17 01:21 Consult to Neurology [CONS] Routine Consulting Provider: [facility] Reason for Consult: dizziness"room spinning" with associated right arm numbness and tingling, nausea. Call Completed: Yes 07/21/17 09:58 Consult to Interpret Exam [CONS] Routine Consulting Provider: Terrie Langford I Consult to Interpret Exam: Interpret EEG Discharging clinician: Bianka Franco Anticipated date of discharge: 07/22/17 - Patient Status Disposition: Home, Self-Care Condition: Good Functional capacity at discharge: independent ambulation Overall status at discharge: patient is back to baseline - Discharge Instructions Instructions: Azithromycin (By mouth), Acute Bronchitis (DC), Pulmonary Nodules (DC) Follow Up With: Zi Lucas MD [Primary Care Provider] - Additional Instructions: Chest CT showed a stable 9 x 4 mm partially calcified nodule in the right upper lobe which could represent a granuloma. If this has been stable for more than 2 years, then no further follow-up is needed. If this is larger in size is recommended that you have a repeat CT at 6-[address] at 18-24 months. Please follow-up with your PCP for continued surveillance. - Diet and Activity Activity: increase activity as tolerated Diet: advance to your usual diet Interval History: Seen and examined at bedside. Patient says she feels much better and back to baseline. She was discharged home today. She tells me she thinks confusion came from eating a brownie that contained marijuana unknowingly on her daughter' s house. Still has cough, productive at times. No fever or chills. No CP or SOB Hospital course: See assessment and plan for hospital course - Time Spent with Patient Total time spent providing and/or coordinating discharge services: - Constitutional Vitals: Temp Pulse Resp BP Pulse Ox 98.5 F 64 20 112/64 96 07/22/17 06:41 07/22/17 06:41 07/22/17 06:41 07/22/17 06:41 07/22/17 06:41 General appearance: Present: A&O X 3, pleasant, no acute distress - Head Head exam: Present: atraumatic, normocephalic - Eye Eye exam: Present: PERRL, conjuntiva pink, sclera anicteric Pupils: Present: PERRL - Neck Neck exam general surgery: Present: supple, trachea midline. Absent: lymphadenopathy - Respiratory Respiratory exam: Present: rhonchi. Absent: accessory muscle use, rales, wheezes - Cardiovascular Cardiovascular exam: Present: RRR, +S1, +S2. Absent: diastolic murmur, gallop, rubs, systolic murmur - GI/Abdominal GI/Abdominal exam: Present: normal bowel sounds, soft, no peritoneal signs. Absent: distended, tenderness - Extremities Exam Extremities exam: Present: warm, radial pulses palpable and symmetrical. Absent : calf tenderness, cyanotic, pedal edema - Neurological Exam Neurological exam: Present: CN II-XII intact, oriented X3, no focal deficits. Absent: pronater drift, facial droop, speech deficit - Skin Skin exam: Present: dry, intact
--- NOTE | 2017-07-22 09:11 | Neurology Progress Note ---
Date of Encounter: 07/22/17 Time of Encounter: 07:30 Assessment and Plan (1) Dizziness Current Visit: Yes Status: Acute This 57-year-old female was admitted with Dizziness lightheadedness predominantly positional vertigo now symptoms has resolved she did not have any focal motor lateralizing sign of a stroke on her examination nor did she was having some nonspecific numbness and tingling that has been resolved. CT angiogram did not show any critical stenosis in the posterior circulation no evidence of posterior circulation stroke on exam or imaging. Continue on an aspirin may use meclizine on when necessary basis MRI of the brain is negative for any acute abnormality minimal chronic ischemic changes noted EEG was also negative for any seizure type of activity though there was a concern that she may have some stiffening of the body but does not sound like a typical seizure She does have underlying anxiety so she is on medication may need adjustment of anxiety medication she does acknowledges that she has been under a lot of stress perhaps contributing to her symptoms If the concern of SEIZURES remains high and perhaps before may be seen as an outpatient for 48 hours ambulatory EEG (2) Weakness generalized Current Visit: Yes Status: Acute Subjective Interval history: Patient is stable denies any other new symptoms or any other new problems so far workup has been negative and particularly EEG and MRI of the brain both were negative no other new episode Objective - Constitutional Vitals: Temp Pulse Resp BP Pulse Ox 98.5 F 64 20 112/64 96 07/22/17 06:41 07/22/17 06:41 07/22/17 06:41 07/22/17 06:41 07/22/17 06:41 - Neurological Exam Sensorimotor examination: Present: intact Motor Examination: Present: grossly full strength in all extremities Motor examination - left side: 4/5: deltoids, biceps, triceps, wrist flexion, wrist extension, hip flexors, unified communications engineer, quadriceps, tibialis Anterior, toe extension (EHL), plantarflexion Sensation intact: Present: intact Mental Status Examination: Present: awake, alert, oriented to person, oriented to place, oriented to time, follows commands appropriately, answers questions appropriately, no agnosia, no aphasia, no aproxia Cranial nerve examination: Present: PERRL, EOMI, visual pal intact, corneal reflexes brisk symmetrically, sensory to face intact, mastication intact, no facial asymmetry is present, no dysarthria, hearing is intact symmetrically, soft palate elevates bilaterally upon phonation, gag reflex intact, flexes SCM and trapezius muscles symmetrically with full power, tongue protrudes midline, no atrophy or facial fasiculations present Cerebellar examination: Present: no dysmetria Results - Laboratory Findings CBC and BMP: 07/22/17 05:34 07/22/17 05:34 Abnormal lab findings: Abnormal lab results RBC 3.61 M/mcL (3.82-4.97) L 07/22/17 05:34 Hct 35.1 % (35.3-44.9) L 07/22/17 05:34 POC Glucose 102 (58-89) H 07/20/17 17:16 Lactate Dehydrogenase 139 Units/L (159-327) L 07/21/17 03:47 Albumin 3.1 g/dL (3.5-5.0) L 07/21/17 03:47 Globulin 3.8 g/dL (2.4-3.5) H 07/21/17 03:47 Albumin/Globulin Ratio 0.8 (1.1-2.2) L 07/21/17 03:47 Cholesterol 221 mg/dL (< 200) H 07/21/17 03:47 LDL Cholesterol, Calc 161 mg/dL (0-99) H 07/21/17 03:47 Cholesterol/HDL Ratio 5.0 (0-4.9) H 07/21/17 03:47 Ur Leukocyte Esterase Trace (Negative) H 07/20/17 18:22 Ur Squamous Epith Cells Moderate per lpf (None-Few) H 07/20/17 18:22 Ur Culture Indicated? YES (NO) A 07/20/17 18:22 Salicylates < 5.0 mg/dL (15-30) L 07/20/17 17:18 Acetaminophen < 1.0 mcg/mL (10-30) L 07/20/17 17:18 U Marijuana (THC) Screen Positive ng/mL (Cutoff = 50) H 07/20/17 18:22 Consult Discharge Plan - Plan Referrals: Zi Lucas MD [Primary Care Provider] - Prescriptions: Azithromycin [Azithromycin 6-Tab Pack] 250 mg PO PER PKG DI #6 tab Valsartan/Hydrochlorothiazide [Diovan Hct 160-12.5 mg Tab] 1 each PO DAILY #30 tablet
[2017-07-22] MEDS: Valsartan 160 MG TABLET PO SCH (09:29)
[2017-07-22] MEDS: Diltiazem CD (24hr) 120 MG CAPSULE PO SCH (09:29)
[2017-07-22] MEDS: hydroCHLOROthiazide 25 MG TABLET PO SCH (09:29)
[2017-07-22] MEDS: FLUoxetine 20 MG CAPSULE PO SCH (09:29)
== END 2017-07-22 10:11 | disposition home or self-care (01) ==
LOC: 3BNU 17:13 → EMEROO 17:13 → 3BNU 20:56
PROVIDERS: ADMIT Internal Medicine Hematology & Oncology; ATTEND Registered Nurse

== ENCOUNTER 2020-05-09 11:02 | Observation (INO) ==
[2020-05-09] MEDS ORDERED: Aspirin 325 MG TABLET PO ONE (11:30)
[2020-05-09 11:42] LABS: Basophils % 0.4 %; Eosinophils # 0.1 K/mcL (0.0-0.6); Eosinophils % 1.3 %; Hematocrit 39.1 % (35.3-44.9); Hemoglobin 12.7 g/dL (11.5-15.4); Immature Granulocytes % 0.2 % (0-4); Lymphocytes # 2.1 K/mcL (0.6-4.6); Lymphocytes % 25.4 %; Mean Corpuscular HGB Conc 32.5 g/dL (31.6-35.5); Mean Corpuscular Hemoglobin 32.3 pg (28.0-33.3); Mean Corpuscular Volume 99.5 fL (83.0-100.0); Mean Platelet Volume 9.2 fL (9.4-12.4); Monocytes # 0.6 K/mcL (0.0-1.3); Monocytes % 7.6 %; Neutrophils # 5.4 K/mcL (1.6-8.9); Platelet Count 282 K/mcL (140-400); Red Blood Count 3.93 M/mcL (3.82-4.97); Red Cell Distribution Width 12.2 % (11.5-14.5); Segmented Neutrophils % 65.1 %; White Blood Count 8.4 K/mcL (4.3-11.1)
[2020-05-09] MEDS: Nitroglycerin 0.4 MG TAB.SUBL SL PRN ×3 (11:45→12:13)
[2020-05-09 12:10] LABS: Troponin I 0.05 ng/mL (< 0.04)
[2020-05-09] MEDS ORDERED: *HR* Heparin 5,000 UNIT/ML VIAL IVP PRN ×2 (12:32)
[2020-05-09] MEDS ORDERED: *HR* Heparin 5,000 UNIT/ML VIAL IVP ONE (12:32)
[2020-05-09] MEDS ORDERED: Heparin 25,000UNIT/250ML 1/2NS 25,000 UNIT/250 ML IV.SOLN IVC SCH (12:45)
[2020-05-09 13:03] LABS: BUN/Creatinine Ratio 18 (6-26); Blood Urea Nitrogen 14 mg/dL (6-20); Calcium 9.6 mg/dL (8.6-10.3); Carbon Dioxide 25 mEq/L (23-29); Chloride 104 mEq/L (98-107); Glucose 104 mg/dL (70-105); Osmolality,Calculated 285 (280-300); Potassium 3.9 mEq/L (3.5-5.1); Sodium 137 mEq/L (136-145); eGFR For African Americans > 60 (> 60); eGFR For Non-African Americans > 60 (> 60)
[2020-05-09 13:09] LABS: Heparin anti-factor XA UFH < 0.04 IU/mL (0.30-0.70)
[2020-05-09 13:10] LABS: Prothrombin Time 11.4 Seconds (9.4-12.1)
[2020-05-09] MEDS ORDERED: Naloxone 0.4 MG/ML INJ IVP PRN (14:02)
[2020-05-09] MEDS ORDERED: Budesonide/Formoterol 80/4.5 1 PUFF INH IH PRN (14:34)
[2020-05-09] MEDS ORDERED: Heparin 1,000 UNITS/500 mL 500 ML ONE (16:17)
[2020-05-09] MEDS ORDERED: Nitroglycerin 1,000 MCG/10 ML VIAL IV ONE (16:17)
[2020-05-09] MEDS ORDERED: *HR* Heparin 10,000 UNIT/10 ML VIAL ONE (16:17)
[2020-05-09] MEDS ORDERED: 0.9 % Sodium Chloride 2,000 ML ONE (16:17)
[2020-05-09] MEDS ORDERED: ISOVUE-370 200 ML INFUS..BTL ONE (16:17)
[2020-05-09] MEDS ORDERED: Perflutren Lipid Microsphere 1.3 ML in 0.9 % Sodium Chloride 8.7 ML IVP PRN (16:46)
[2020-05-10] MEDS ORDERED: DilTIAZem CD (24hr) 120 MG CAP.ER.24H PO SCH (09:00)
[2020-05-10] MEDS ORDERED: FLUoxetine 20 MG CAPSULE PO SCH (09:00)
[2020-05-10] MEDS ORDERED: Aspirin 81 MG TAB.CHEW PO SCH (09:00)
[2020-05-10] MEDS ORDERED: Nitroglycerin 1,000 MCG/10 ML VIAL IV ONE (10:13)
[2020-05-10] MEDS ORDERED: ISOVUE-370 200 ML INFUS..BTL ONE ×2 (10:13→11:25)
[2020-05-10] MEDS ORDERED: 0.9 % Sodium Chloride 1,000 ML ONE (10:13)
[2020-05-10] MEDS ORDERED: Heparin 1,000 UNITS/500 mL 500 ML ONE (10:13)
[2020-05-10] MEDS ORDERED: *HR* Heparin 10,000 UNIT/10 ML VIAL ONE (10:13)
[2020-05-10] MEDS ORDERED: *HR* FentaNYL (PF) 100 MCG/2 ML VIAL ONE (11:03)
[2020-05-10] MEDS ORDERED: *HR* Midazolam HCl 2 MG/2 ML VIAL ONE (11:03)
[2020-05-10] MEDS ORDERED: 0.9 % Sodium Chloride 1,000 ML IVC SCH (11:45)
[2020-05-10] MEDS ORDERED: Acetaminophen 325 MG TABLET PO ONE (16:25)
[2020-05-10 18:39] VITALS: BP 112/69
== END 2020-05-10 18:57 | disposition home or self-care (01) ==
LOC: EMEROOARM 11:02 → 3BNU 11:02 → SUATTDRO 13:06 → 3BNU 14:01
PROVIDERS: ADMIT Internal Medicine; ATTEND Internal Medicine